=== PATIENT | male | born 1970 | race African-American/Black ===

== ENCOUNTER 2016-12-07 10:20 | Emergency (ER) | payer MEDICAID ==
--- NOTE | 2016-12-07 10:52 | NUR ---
CALLED FOR PT IN [place]. NO RESPONSE.
--- NOTE | 2016-12-07 11:08 | NUR ---
CALLED TO TRIAGE,NO ANSWER, WENT OUTSIDE PER ADMITTING
== END 2016-12-07 12:05 | disposition home or self-care (01) ==
LOC: ER 10:22
DX: S69.91XA Unspecified injury of right wrist, hand and finger(s), initial encounter (principal); W18.39XA Other fall on same level, initial encounter; Y93.89 Activity, other specified; Y92.89 Other specified places as the place of occurrence of the external cause; Y99.9 Unspecified external cause status
CPT/HCPCS: 73130-TC; Z7610